=== PATIENT | female | born 1935 | race Caucasian/White ===

== ENCOUNTER → 2018-06-22 | Outpatient (CLI) | payer MEDICARE ==
--- NOTE | 2018-06-22 15:23 | XR ---
EXAMINATION TYPE: XR abdomen 2V DATE OF EXAM: 06/22/2018 COMPARISON: 02/01/2010 HISTORY: Pelvic pain TECHNIQUE: One view abdominal series FINDINGS: The osseous structures are intact. The bowel gas pattern is nonspecific. Curvature the spine with mu ltilevel degenerative disc disease. There are vascular calcifications. Bone island overlying the left femur and right iliac bone. Tiny calcifications in the pelvis are nonspecific. Arthropathy of the hi ps. IMPRESSION: 1. Nonspecific abdomen. There are calcifications the pelvis which are likely vascular. Aortic athero sclerotic changes are noted which could be correlated with ultrasound. Correlate with CT scan as curr ently warranted.
== END | disposition home or self-care (01) ==
LOC: RADXRYALE 15:06
PROVIDERS: ATTEND Physician Assistant Medical
DX: I70.0 Atherosclerosis of aorta (principal); R10.30 Lower abdominal pain, unspecified; R19.04 Left lower quadrant abdominal swelling, mass and lump
CPT/HCPCS: 74019

== ENCOUNTER 2018-06-30 15:58 | Inpatient (IN) | payer MEDICARE ==
[2018-06-30 14:12] LABS: Blood Urea Nitrogen 13 mg/dL (7-17)
--- NOTE | 2018-06-30 16:02 | CT ---
EXAMINATION TYPE: CT abdomen pelvis w con DATE OF EXAM: 06/30/2018 HISTORY: Lower abdominal pain, mass. CT DLP: 1189.1mGycm Automated Exposure Control for Dose Reduction was Utilized. CONTRAST: CT scan of the abdomen and pelvis is performed with IV Contrast, patient injected with 100 mL of Isov ue M300. COMPARISON: None. FINDINGS: LUNG BASES: There is a 2 mm pulmonary nodule within the anterior right lower lobe. LIVER/GB: No significant abnormality is appreciated. Gallbladder demonstrates no internal radiopaque calculi. PANCREAS: Mild pancreatic atrophy is present without ductal dilatation. SPLEEN: Nonspecific splenic lesion is seen posteriorly measuring 7 mm. ADRENALS: There is slight nodularity of the lateral limb of the left adrenal gland measuring 7 mm. Th is remains indeterminant as it does not meet diagnostic criteria for an adrenal adenoma on this exami nation. KIDNEYS: Kidneys enhance and excrete symmetrically without hydronephrosis. However there is a too sma ll to accurately characterize left midpole renal lesion on series 6 image 35. BOWEL: There is diffuse thickening of the sigmoid colon, directly adjacent to the thickened sigmoid c olon there is a multiloculated fluid collection with peripheral enhancement and surrounding spiculati on with mild inflammatory change. The largest contiguous dimension measures approximately 5.2 x 1.6 c m with the more caudal and cranial aspects loculated. A smaller adjacent fluid collection measures 1. 2 cm in the more inferior fluid collection measures 1.9 cm. There is no air seen within the fluid col lection or free air seen. There is no large or small bowel dilatation or evidence of obstruction. Contrast does not extend to t he sigmoid colon. UTERUS/ADNEXA: Uterus appears surgically absent. LYMPH NODES: No greater than 1cm abdominal or pelvic lymph nodes are appreciated. OSSEOUS STRUCTURES: Sclerotic lesion within the right iliac bone measuring 4 mm. This could represent a benign bone island. Mild multilevel degenerative changes of the spine are present with multilevel vacuum disc disease. OTHER: Diastases recti is seen. There is moderate calcific atheromatous changes of the abdominal aort a and its branches. IMPRESSION: 1. Multiloculated peripherally enhancing pericolonic fluid collection with stranding inflammatory phl egmonous change adjacent to the thickened sigmoid colon with numerous diverticula. Therefore findings are most compatible with acute on chronic diverticulitis and associated pericolonic abscess formatio n. Findings were communicated with the ordering physician's office however the ordering physician was out of the office and therefore findings were dedicated to a physician programs assistant with instructions t o send the patient to the ER. The patient was therefore instructed to go directly to the ER. 2. Indeterminate left adrenal gland lesion for which further characterization with three-phase enhanc ed abdominal CT could be performed on a nonemergent basis.
[2018-06-30] MEDS ORDERED: metroNIDAZOLE-NS PMX 500 MG in SALINE 1 100ML.BAG IVPB STA (16:54)
[2018-06-30] MEDS ORDERED: LEVOFLOXACIN 750MG-D5W PMX 750 MG in DEXTROSE/WATER 1 150ML.BAG IVPB STA (16:54)
--- NOTE | 2018-06-30 16:57 | ED ---
Abdominal Pain HPI - General Chief Complaint: Abdominal Pain Time Seen by Provider: 06/30/18 16:43 Source: patient, RN notes reviewed Mode of arrival: ambulatory Limitations: no limitations - History of Present Illness Initial Comments: 82-year-old female presents emergency Department chief complaint abdominal pain. Patient states been having ongoing abdominal pain for last 1 month and states that she went for a CT today and she was sent to the ER. Patient is found to have diverticulitis with abscess. Patient denies any fever or chills or night sweats. She states the pain seems to wax and wane but has never unbearable. She has no dysuria, urinary frequency. She has had a prior appendectomy, section but no recent surgeries. She states that she has no known history of diverticulitis. Patient denies any hematemesis, coffee- ground emesis, melena or hematochezia denies any mucus within her stool. - Related Data Allergies Allergy/AdvReac Type Severity Reaction Status Date / Time blue cheese Allergy Rash/Hives Uncoded 06/30/18 16:28 Review of Systems ROS Statement: Those systems with pertinent positive or pertinent negative responses have been documented in the HPI. ROS Other: All systems not noted in ROS Statement are negative. Past Medical History Past Medical History: Hypertension Additional Past Medical History / Comment(s): back pain History of Any Multi-Drug Resistant Organisms: None Reported Past Surgical History: Joint Replacement Additional Past Surgical History / Comment(s): knee repla Past Psychological History: No Psychological Hx Reported Smoking Status: Never smoker Past Alcohol Use History: None Reported Past Drug Use History: None Reported General Exam Limitations: no limitations General appearance: alert, in no apparent distress Head exam: Present: atraumatic, normocephalic, normal inspection Respiratory exam: Present: normal lung sounds bilaterally. Absent: respiratory distress, wheezes, rales, rhonchi, stridor Cardiovascular Exam: Present: regular rate, normal rhythm, normal heart sounds. Absent: systolic murmur, diastolic murmur, rubs, gallop, clicks GI/Abdominal exam: Present: soft, tenderness (Mild tenderness to left lower quadrant), normal bowel sounds. Absent: distended, guarding, rebound, rigid Back exam: Absent: CVA tenderness (R), CVA tenderness (L) Skin exam: Present: warm, dry, intact, normal color. Absent: rash Course Vital Signs 06/30/18 16:25 Temperature 98.8 F Pulse Rate 90 Respiratory 18 Rate Blood Pressure 185/102 O2 Sat by Pulse 96 Oximetry Medical Decision Making - Medical Decision Making 82-year-old female presented for abdominal pain palpation CT shows diverticulitis with pericolonic abscess. There is no noted free air. Patient will be started on antibiotics admitted to Dr. Mcdowell medicine with consult to Dr. mackey for surgery. - Lab Data Result diagrams: 06/30/18 17:22 06/30/18 17:22 Lab Results 06/30/18 06/30/18 06/30/18 Range/Units 13:55 17:22 17:22 WBC 8.0 (3.8-10.6) k/uL RBC 4.43 (3.80-5.40) m/uL Hgb 13.3 (11.4-16.0) gm/dL Hct 40.3 (34.0-46.0) % MCV 90.9 (80.0-100.0) fL MCH 29.9 (25.0-35.0) pg MCHC 32.9 (31.0-37.0) g/dL RDW 12.4 (11.5-15.5) % Plt Count 316 (150-450) k/uL Neutrophils % 75 % Lymphocytes % 16 % Monocytes % 6 % Eosinophils % 2 % Basophils % 0 % Neutrophils # 6.0 (1.3-7.7) k/uL Lymphocytes # 1.3 (1.0-4.8) k/uL Monocytes # 0.5 (0-1.0) k/uL Eosinophils # 0.1 (0-0.7) k/uL Basophils # 0.0 (0-0.2) k/uL PT (9.0-12.0) sec INR (<1.2) APTT (22.0-30.0) sec Sodium 137 (137-145) mmol/L Potassium 3.8 (3.5-5.1) mmol/L Chloride 104 (98-107) mmol/L Carbon Dioxide 26 (22-30) mmol/L Anion Gap 7 mmol/L BUN 13 10 (7-17) mg/dL Creatinine 0.68 0.60 (0.52-1.04) mg/dL Est GFR (CKD-EPI)AfAm >90 >90 (>60 ml/min/1.73 sqM) Est GFR (CKD-EPI)NonAf 83 87 (>60 ml/min/1.73 sqM) Glucose 106 H (74-99) mg/dL Plasma Lactic Acid Noel (0.7-2.0) mmol/L Calcium 8.8 (8.4-10.2) mg/dL Total Bilirubin 0.3 (0.2-1.3) mg/dL AST 20 (14-36) U/L ALT 30 (9-52) U/L Alkaline Phosphatase 101 (38-126) U/L Total Protein 5.9 L (6.3-8.2) g/dL Albumin 3.3 L (3.5-5.0) g/dL Urine Color Urine Appearance (Clear) Urine pH (5.0-8.0) Ur Specific Sophia (1.001-1.035) Urine Protein (Negative) Urine Glucose (UA) (Negative) Urine Ketones (Negative) Urine Blood (Negative) Urine Nitrite (Negative) Urine Bilirubin (Negative) Urine Urobilinogen (<2.0) mg/dL Ur Leukocyte Esterase (Negative) 06/30/18 06/30/18 06/30/18 Range/Units 17:22 17:22 17:45 WBC (3.8-10.6) k/uL RBC (3.80-5.40) m/uL Hgb (11.4-16.0) gm/dL Hct (34.0-46.0) % MCV (80.0-100.0) fL MCH (25.0-35.0) pg MCHC (31.0-37.0) g/dL RDW (11.5-15.5) % Plt Count (150-450) k/uL Neutrophils % % Lymphocytes % % Monocytes % % Eosinophils % % Basophils % % Neutrophils # (1.3-7.7) k/uL Lymphocytes # (1.0-4.8) k/uL Monocytes # (0-1.0) k/uL Eosinophils # (0-0.7) k/uL Basophils # (0-0.2) k/uL PT 9.9 (9.0-12.0) sec INR 1.0 (<1.2) APTT 24.0 (22.0-30.0) sec Sodium (137-145) mmol/L Potassium (3.5-5.1) mmol/L Chloride (98-107) mmol/L Carbon Dioxide (22-30) mmol/L Anion Gap mmol/L BUN (7-17) mg/dL Creatinine (0.52-1.04) mg/dL Est GFR (CKD-EPI)AfAm (>60 ml/min/1.73 sqM) Est GFR (CKD-EPI)NonAf (>60 ml/min/1.73 sqM) Glucose (74-99) mg/dL Plasma Lactic Acid Noel 0.8 (0.7-2.0) mmol/L Calcium (8.4-10.2) mg/dL Total Bilirubin (0.2-1.3) mg/dL AST (14-36) U/L ALT (9-52) U/L Alkaline Phosphatase (38-126) U/L Total Protein (6.3-8.2) g/dL Albumin (3.5-5.0) g/dL Urine Color Colorless Urine Appearance Clear (Clear) Urine pH 7.0 (5.0-8.0) Ur Specific Sophia 1.019 (1.001-1.035) Urine Protein Negative (Negative) Urine Glucose (UA) Negative (Negative) Urine Ketones Negative (Negative) Urine Blood Negative (Negative) Urine Nitrite Negative (Negative) Urine Bilirubin Negative (Negative) Urine Urobilinogen <2.0 (<2.0) mg/dL Ur Leukocyte Esterase Negative (Negative) Disposition Clinical Impression: Diverticulitis of intestine with abscess Disposition: ADMITTED IP TO THIS HOSP Condition: Stable Referrals: Tom John DO [Primary Care Provider] - 1-2 days
[2018-06-30 17:39] LABS: Basophils % (A) 0 %; Eosinophils # (A) 0.1 k/uL (0-0.7); Eosinophils % (A) 2 %; HCT 40.3 % (34.0-46.0); HGB 13.3 gm/dL (11.4-16.0); Lymphocytes # (A) 1.3 k/uL (1.0-4.8); Lymphocytes % (A) 16 %; MCH 29.9 pg (25.0-35.0); MCHC 32.9 g/dL (31.0-37.0); MCV 90.9 fL (80.0-100.0); Mean Platelet Volume 6.3; Monocytes # (A) 0.5 k/uL (0-1.0); Monocytes % (A) 6 %; Neutrophils % (A) 75 %; Platelet Count 316 k/uL (150-450); RBC 4.43 m/uL (3.80-5.40); RDW 12.4 % (11.5-15.5)
[2018-06-30 17:47] LABS: Prothrombin Time 9.9 sec (9.0-12.0)
[2018-06-30 17:55] LABS: Appearance,Urine Clear (Clear); Bilirubin,Urine Negative (Negative); Blood,Urine Negative (Negative); Color,Urine Colorless; Glucose,Urine (UA) Negative (Negative); Ketones,Urine Negative (Negative); Leukocyte Esterase,Urine Negative (Negative); Nitrite,Urine Negative (Negative); Protein,Urine Negative (Negative); Specific Gravity,Urine 1.019 (1.001-1.035); Urobilinogen,Urine <2.0 mg/dL (<2.0)
[2018-06-30 17:57] LABS: ALT 30 U/L (9-52); AST 20 U/L (14-36); Albumin 3.3 g/dL (3.5-5.0); Alkaline Phosphatase 101 U/L (38-126); Anion Gap 7 mmol/L; Blood Urea Nitrogen 10 mg/dL (7-17); Calcium 8.8 mg/dL (8.4-10.2); Carbon Dioxide 26 mmol/L (22-30); Chloride 104 mmol/L (98-107); Glucose 106 mg/dL (74-99); Potassium 3.8 mmol/L (3.5-5.1); Sodium 137 mmol/L (137-145); Total Bilirubin 0.3 mg/dL (0.2-1.3); Total Protein 5.9 g/dL (6.3-8.2)
[2018-06-30] MEDS ORDERED: MORPHINE SULFATE 4 MG/ML SYRINGE IV PRN (18:01)
[2018-06-30] MEDS ORDERED: ONDANSETRON 4 MG/2 ML VIAL IVP PRN (18:01)
[2018-06-30] MEDS ORDERED: NALOXONE 0.4 MG/ML 1 ML VIAL IV PRN (18:01)
[2018-06-30 19:38] VITALS: BMI 35.2
[2018-06-30] MEDS: SODIUM CHLORIDE 0.9% 1,000 ML IV SCH (23:09)
[2018-06-30] MEDS: metroNIDAZOLE-NS PMX 500 MG in SALINE 1 100ML.BAG IVPB SCH (23:09)
[2018-07-01] MEDS: metroNIDAZOLE-NS PMX 500 MG in SALINE 1 100ML.BAG IVPB SCH ×2 (09:38→15:33)
[2018-07-01] MEDS: SODIUM CHLORIDE 0.9% 1,000 ML IV SCH (09:40)
--- NOTE | 2018-07-01 10:13 | P.GSCN ---
History of Present Illness Consult date: 07/01/18 Reason for Consult: Diverticulitis History of present illness: Patient is an 82-year-old pleasant lady presents to the hospital complaining of 3-4 weeks of abdominal pain mostly left lower quadrant and suprapubic. Gen. in recent CAT scan was found to have diverticulitis with small flakita-colonic abscess. Doing better today. Patient denies fevers. No nausea or vomiting. Fairly normal stools. Denies rectal bleeding or melena. White blood cell count is normal. She is afebrile currently. Pain is improved today. Last colonoscopy over 10 years ago. CAT scan reviewed. Past Medical History Past Medical History: Hypertension Additional Past Medical History / Comment(s): back pain History of Any Multi-Drug Resistant Organisms: None Reported Past Surgical History: Joint Replacement Additional Past Surgical History / Comment(s): knee repla Past Psychological History: No Psychological Hx Reported Smoking Status: Never smoker Past Alcohol Use History: None Reported Past Drug Use History: None Reported Medications and Allergies Home Medications Medication Instructions Recorded Confirmed Type Aspirin 325 - 650 mg PO DAILY PRN 06/30/18 06/30/18 History C,E,Zinc,Copper 11/Zggxz8x/Lut 1 cap PO BID 06/30/18 06/30/18 History [Ocuvite Adult 50 Plus Softgel] HYDROcodone/APAP 10-325MG [[place] 1 tab PO BID 06/30/18 06/30/18 History 10-325] Losartan [Cozaar] 25 mg PO DAILY 06/30/18 06/30/18 History Mirabegron [Myrbetriq] 50 mg PO DAILY 06/30/18 06/30/18 History Multivitamins, Thera [Multivitamin 1 tab PO DAILY 06/30/18 06/30/18 History (formulary)] Allergies Allergy/AdvReac Type Severity Reaction Status Date / Time blue cheese Allergy Rash/Hives Uncoded 06/30/18 16:28 Surgical - Exam Vital Signs Temp Pulse Resp BP Pulse Ox 98.8 F 90 18 185/102 96 06/30/18 16:25 06/30/18 16:25 06/30/18 16:25 06/30/18 16:25 06/30/18 16:25 Physical exam: General: Well-developed, well-nourished HEENT: Normocephalic, sclerae nonicteric Abdomen: Mild suprapubic tenderness, nondistended Extremities: No edema Neuro: Alert and oriented Results - Labs 06/30/18 17:22 06/30/18 17:22 Abnormal Lab Results - Last 24 Hours (Table) 06/30/18 Range/Units 17:22 Glucose 106 H (74-99) mg/dL Total Protein 5.9 L (6.3-8.2) g/dL Albumin 3.3 L (3.5-5.0) g/dL Diabetes panel 06/30/18 06/30/18 Range/Units 13:55 17:22 Sodium 137 (137-145) mmol/L Potassium 3.8 (3.5-5.1) mmol/L Chloride 104 (98-107) mmol/L Carbon Dioxide 26 (22-30) mmol/L BUN 13 10 (7-17) mg/dL Creatinine 0.68 0.60 (0.52-1.04) mg/dL Glucose 106 H (74-99) mg/dL Calcium 8.8 (8.4-10.2) mg/dL AST 20 (14-36) U/L ALT 30 (9-52) U/L Alkaline Phosphatase 101 (38-126) U/L Total Protein 5.9 L (6.3-8.2) g/dL Albumin 3.3 L (3.5-5.0) g/dL Calcium panel 06/30/18 Range/Units 17:22 Calcium 8.8 (8.4-10.2) mg/dL Albumin 3.3 L (3.5-5.0) g/dL Pituitary panel 06/30/18 06/30/18 Range/Units 13:55 17:22 Sodium 137 (137-145) mmol/L Potassium 3.8 (3.5-5.1) mmol/L Chloride 104 (98-107) mmol/L Carbon Dioxide 26 (22-30) mmol/L BUN 13 10 (7-17) mg/dL Creatinine 0.68 0.60 (0.52-1.04) mg/dL Glucose 106 H (74-99) mg/dL Calcium 8.8 (8.4-10.2) mg/dL Adrenal panel 06/30/18 06/30/18 Range/Units 13:55 17:22 Sodium 137 (137-145) mmol/L Potassium 3.8 (3.5-5.1) mmol/L Chloride 104 (98-107) mmol/L Carbon Dioxide 26 (22-30) mmol/L BUN 13 10 (7-17) mg/dL Creatinine 0.68 0.60 (0.52-1.04) mg/dL Glucose 106 H (74-99) mg/dL Calcium 8.8 (8.4-10.2) mg/dL Total Bilirubin 0.3 (0.2-1.3) mg/dL AST 20 (14-36) U/L ALT 30 (9-52) U/L Alkaline Phosphatase 101 (38-126) U/L Total Protein 5.9 L (6.3-8.2) g/dL Albumin 3.3 L (3.5-5.0) g/dL Assessment and Plan (1) Diverticulitis of intestine with abscess Narrative/Plan: Patient seems really responding well to IV antibiotics currently. Begin clear liquids. Anticipate discharge home on oral antibiotics in the next few days with plans for outpatient ct scan. Current Visit: Yes Status: Acute Code(s): K57.80 - DVTRCLI OF INTEST, PART UNSP, W PERF AND ABSCESS W/O BLEED SNOMED Code(s): 523828524
[2018-07-01] MEDS ORDERED: KETOROLAC 30 MG/ML 1 ML VIAL IVP PRN (11:05)
[2018-07-01] MEDS ORDERED: ACETAMINOPHEN TAB 325 MG TAB PO PRN (11:05)
--- NOTE | 2018-07-01 13:16 | P.HPIM ---
History of Present Illness 82-year-old pleasant female came in with compensative lower quadrant as well as orthopedic abdominal pain going on for about 4 weeks moderate in severity and sharp in nature. Patient had a CAT scan of the abdomen which showed diverticulitis with saw some small pericolonic abscess patient denied nausea vomiting patient denied any hematochezia or melena. Patient is afebrile with no leukocytosis. Patient was started on levofloxacin and metronidazole which are being continued patient was started on clear liquid diet surgery evaluated the patient today is recommending monitoring on IV antibiotics no surgical intervention is being planned at this time patient abdominal wall tenderness significantly improved doesn't have any tenderness at this point of time and patient is tolerating her antibiotics very well at this time. Review of Systems REVIEW OF SYSTEMS: CONSTITUTIONAL: No fever, no malaise, no fatigue. HEENT: No recent visual problems or hearing problems. Denied any sore throat. CARDIOVASCULAR: No chest pain, orthopnea, PND, no palpitations, no syncope. PULMONARY: No shortness of breath, no cough, no hemoptysis. GASTROINTESTINAL: No diarrhea, no nausea, no vomiting. NEUROLOGICAL: No headaches, no weakness, no numbness. HEMATOLOGICAL: Denies any bleeding or petechiae. GENITOURINARY: Denies any burning micturition, frequency, or urgency. MUSCULOSKELETAL/RHEUMATOLOGICAL: Denies any joint pain, swelling, or any muscle pain. ENDOCRINE: Denies any polyuria or polydipsia. The rest of the 14-point review of systems is negative. Past Medical History Past Medical History: Hypertension Additional Past Medical History / Comment(s): back pain History of Any Multi-Drug Resistant Organisms: None Reported Past Surgical History: Joint Replacement Additional Past Surgical History / Comment(s): knee repla Past Psychological History: No Psychological Hx Reported Smoking Status: Never smoker Past Alcohol Use History: None Reported Past Drug Use History: None Reported Medications and Allergies Home Medications Medication Instructions Recorded Confirmed Type Aspirin 325 - 650 mg PO DAILY PRN 06/30/18 06/30/18 History C,E,Zinc,Copper 11/Vdzxi7z/Lut 1 cap PO BID 06/30/18 06/30/18 History [Ocuvite Adult 50 Plus Softgel] HYDROcodone/APAP 10-325MG [[place] 1 tab PO BID 06/30/18 06/30/18 History 10-325] Losartan [Cozaar] 25 mg PO DAILY 06/30/18 06/30/18 History Mirabegron [Myrbetriq] 50 mg PO DAILY 06/30/18 06/30/18 History Multivitamins, Thera [Multivitamin 1 tab PO DAILY 06/30/18 06/30/18 History (formulary)] Allergies Allergy/AdvReac Type Severity Reaction Status Date / Time blue cheese Allergy Rash/Hives Uncoded 06/30/18 16:28 Physical Exam Vitals: Vital Signs Temp Pulse Pulse Resp BP BP Pulse Ox 07/01/18 06:14 97.4 F L 81 17 118/67 91 L 06/30/18 22:58 98.0 F 91 18 131/75 93 L 06/30/18 19:25 97.1 F L 89 18 143/84 96 06/30/18 16:25 98.8 F 90 18 185/102 96 Intake and Output 06/30/18 07/01/18 07/01/18 22:59 06:59 14:59 Other: Voiding Method Toilet # Voids 1 1 Weight 79 kg PHYSICAL EXAMINATION: GENERAL: The patient is alert and oriented x3, not in any acute distress. Well developed, well nourished. HEENT: Pupils are round and equally reacting to light. EOMI. No scleral icterus. No conjunctival pallor. Normocephalic, atraumatic. No pharyngeal erythema. No thyromegaly. CARDIOVASCULAR: S1 and S2 present. No murmurs, rubs, or gallops. PULMONARY: Chest is clear to auscultation, no wheezing or crackles. ABDOMEN: Soft, nontender, nondistended, normoactive bowel sounds. No palpable organomegaly. MUSCULOSKELETAL: No joint swelling or deformity. EXTREMITIES: No cyanosis, clubbing, or pedal edema. NEUROLOGICAL: Gross neurological examination did not reveal any focal deficits. SKIN: No rashes. Results CBC & Chem 7: 06/30/18 17:22 06/30/18 17:22 Labs: Abnormal Lab Results - Last 24 Hours (Table) 06/30/18 Range/Units 17:22 Glucose 106 H (74-99) mg/dL Total Protein 5.9 L (6.3-8.2) g/dL Albumin 3.3 L (3.5-5.0) g/dL Thrombosis Risk Factor Assmnt - Choose All That Apply Any of the Below Risk Factors Present?: No Each Risk Factor Represents 3 Points: Age 75 years or older Thrombosis Risk Factor Assessment Total Risk Factor Score: 3 Thrombosis Risk Factor Assessment Level: Moderate Risk Assessment and Plan Plan: -Acute diverticulitis with some small microperforation: Can you antibiotics can you with IV fluids cut down the IV fluids once patient was started on oral diet. -Hypertension: Resume home medications -Chronic low back pain.
[2018-07-01] MEDS: FAMOTIDINE 20 MG TAB PO SCH ×2 (13:54→19:55)
[2018-07-01] MEDS: LOSARTAN 25 MG TAB PO SCH (15:33)
[2018-07-01] MEDS ORDERED: LEVOFLOXACIN 750MG-D5W PMX 750 MG in DEXTROSE/WATER 1 150ML.BAG IVPB SCH (18:00)
[2018-07-02] MEDS: metroNIDAZOLE-NS PMX 500 MG in SALINE 1 100ML.BAG IVPB SCH ×2 (00:18→07:44)
[2018-07-02] MEDS: LOSARTAN 25 MG TAB PO SCH (07:44)
[2018-07-02] MEDS: FAMOTIDINE 20 MG TAB PO SCH (07:44)
[2018-07-02 08:14] VITALS: BP 136/79; PULSE 82; RESP 16; TEMP 98.4
[2018-07-02 08:18] LABS: Basophils % (A) 0 %; Eosinophils # (A) 0.2 k/uL (0-0.7); Eosinophils % (A) 3 %; HCT 45.1 % (34.0-46.0); HGB 14.2 gm/dL (11.4-16.0); Lymphocytes # (A) 1.8 k/uL (1.0-4.8); Lymphocytes % (A) 19 %; MCH 29.3 pg (25.0-35.0); MCHC 31.4 g/dL (31.0-37.0); MCV 93.2 fL (80.0-100.0); Mean Platelet Volume 6.3; Monocytes # (A) 0.6 k/uL (0-1.0); Monocytes % (A) 7 %; Neutrophils # (A) 6.8 k/uL (1.3-7.7); Neutrophils % (A) 70 %; Platelet Count 397 k/uL (150-450); RBC 4.84 m/uL (3.80-5.40); RDW 12.2 % (11.5-15.5); WBC 9.7 k/uL (3.8-10.6)
[2018-07-02] MEDS ORDERED: MYRBETRIQ 50MG PO SCH (09:00)
--- NOTE | 2018-07-02 09:56 | P.PN ---
Subjective Progress Note Date: 07/02/18 Principal diagnosis: Diverticulitis Patient doing well today. Only mild superpubic tenderness. She is afebrile. White blood cell count normal. Objective - Vital Signs Vital signs: Vital Signs Temp 98.4 F 07/02/18 07:01 Pulse 82 07/02/18 07:01 Resp 16 07/02/18 07:01 BP 136/79 07/02/18 07:01 Pulse Ox 92 L 07/02/18 07:01 Intake & Output 07/01/18 07/02/18 07/02/18 18:59 06:59 18:59 Intake Total 1200 Balance 1200 Intake: Oral 1200 Other: Voiding Method Toilet Toilet # Voids 1 3 # Bowel Movements 2 - Exam Abdomen: Soft, nondistended, mild suprapubic tenderness - Labs CBC & Chem 7: 07/02/18 07:31 06/30/18 17:22 Labs: Microbiology - Last 24 Hours (Table) 06/30/18 17:22 Blood Culture - Preliminary Blood No Growth after 24 hours Assessment and Plan (1) Diverticulitis of intestine with abscess Narrative/Plan: Continue IV antibiotics. Gradually advance diet. Would recommend follow-up CAT scan in 1 week. Current Visit: Yes Status: Acute Code(s): K57.80 - DVTRCLI OF INTEST, PART UNSP, W PERF AND ABSCESS W/O BLEED SNOMED Code(s): 883848098
--- NOTE | 2018-07-02 12:26 | P.DS ---
Providers Date of admission: 06/30/18 18:26 Attending physician: Rosaline Mcdowell Consults: 06/30/18 18:01 Consult Physician Stat Consulting Provider: Emiliano Lr Reason/Comments: Diverticulitis with abscess Do you want consulting provider notified?: Yes [facility] Course: 82-year-old pleasant female was admitted secondary to sigmoid diverticulitis with the small microperforation, was evaluated by surgery patient is able to tolerate full liquid diet will be advanced to soft diet patient will stay on soft diet until she sees Dr. June as an outpatient and will need a repeat CAT scan of the abdomen as an outpatient patient will follow with PCP in 2-3 days and surgery in about a week patient will be discharged on 10 day course of ciprofloxacin and metronidazole. PHYSICAL EXAMINATION: GENERAL: The patient is alert and oriented x3, not in any acute distress. Well developed, well nourished. HEENT: Pupils are round and equally reacting to light. EOMI. No scleral icterus. No conjunctival pallor. Normocephalic, atraumatic. No pharyngeal erythema. No thyromegaly. CARDIOVASCULAR: S1 and S2 present. No murmurs, rubs, or gallops. PULMONARY: Chest is clear to auscultation, no wheezing or crackles. ABDOMEN: Soft, nontender, nondistended, normoactive bowel sounds. No palpable organomegaly. MUSCULOSKELETAL: No joint swelling or deformity. EXTREMITIES: No cyanosis, clubbing, or pedal edema. NEUROLOGICAL: Gross neurological examination did not reveal any focal deficits. SKIN: No rashes. Her other chronic medical problems hospitalization course please refer to my HPI from yesterday Patient Condition at Discharge: Stable Plan - Discharge Summary New Discharge Prescriptions: New Ciprofloxacin HCl [Cipro] 500 mg PO Q12HR #20 tablet metroNIDAZOLE [Flagyl] 500 mg PO Q8HR #30 tab Continue Multivitamins, Thera [Multivitamin (formulary)] 1 tab PO DAILY C,E,Zinc,Copper 11/Noqnt7q/Lut [Ocuvite Adult 50 Plus Softgel] 1 cap PO BID Aspirin 325 - 650 mg PO DAILY PRN PRN Reason: Pain Mirabegron [Myrbetriq] 50 mg PO DAILY Losartan [Cozaar] 25 mg PO DAILY HYDROcodone/APAP 10-325MG [[place] 10-325] 1 tab PO BID Discharge Medication List Aspirin 325 - 650 mg PO DAILY PRN 06/30/18 [History] C,E,Zinc,Copper 11/Ympys0g/Lut [Ocuvite Adult 50 Plus Softgel] 1 cap PO BID 02/12 [History] HYDROcodone/APAP 10-325MG [[place] 10-325] 1 tab PO BID 06/30/18 [History] Losartan [Cozaar] 25 mg PO DAILY 06/30/18 [History] Mirabegron [Myrbetriq] 50 mg PO DAILY 06/30/18 [History] Multivitamins, Thera [Multivitamin (formulary)] 1 tab PO DAILY 06/30/18 [History ] Ciprofloxacin HCl [Cipro] 500 mg PO Q12HR #20 tablet 07/02/18 [Rx] metroNIDAZOLE [Flagyl] 500 mg PO Q8HR #30 tab 07/02/18 [Rx] Follow up Appointment(s)/Referral(s): Emiliano Lr MD [Medical Doctor] - 1 Week (office closed, call to make appt) Tom John DO [Primary Care Provider] - 3 Days (office closed, call to make own appt.) Patient Instructions/Handouts: Diverticulitis (DC) Discharge Disposition: HOME SELF-CARE
== END 2018-07-02 12:51 | disposition home or self-care (01) | DRG 392 ==
LOC: EC 15:58 → 4MS4W 18:26
PROVIDERS: ADMIT Internal Medicine; ATTEND Internal Medicine
DX: K57.20 Diverticulitis of large intestine with perforation and abscess without bleeding (principal); G89.29 Other chronic pain; I10 Essential (primary) hypertension; Z79.899 Other long term (current) drug therapy; M54.5 Low back pain; Z96.659 Presence of unspecified artificial knee joint; Z79.82 Long term (current) use of aspirin
CPT/HCPCS: 36415; 74177; 80053; 81003; 82565; 83605; 84520; 85025; 85610; 85730; 87040; 87324; 96365; 96366; 99285

== ENCOUNTER → 2018-07-12 | Outpatient (CLI) | payer MEDICARE ==
--- NOTE | 2018-07-12 15:34 | CT ---
EXAMINATION TYPE: CT abdomen pelvis w con DATE OF EXAM: 07/12/2018 COMPARISON: 06/30/2018 INDICATION: Diverticulitis DLP: 1390 mGycm, Automated exposure control for dose reduction was used. CONTRAST: 100 ml mL of Isovue 300. Study performed with Oral Contrast TECHNIQUE: Axial images were obtained from above the diaphragm to the pubic rami in the axial plane a t 5 mm thick sections. Reconstructed images are reviewed on the computer in the coronal plane. FINDINGS: Limited CT sections are obtained the lung bases. The lung bases are clear. CT ABDOMEN: Liver: Normal Spleen: There is a 1.0 cm cyst on the medial and spleen. Pancreas: Normal Adrenal glands: The adrenal glands are normal. Gallbladder: Normal Kidneys: No masses are evident. No hydronephrosis is present. No cysts are present. Aorta: Vascular calcification is within the aorta. Inferior vena cava: Normal. CT PELVIS: Diverticuli are within the sigmoid colon. Adjacent to the sigmoid colon is a low-density collection w ith small amount of air measuring 2.7 x 5.4 cm. Findings are compatible with abscess. This is diminis hed in size from the comparison. Contrast extends to distal small bowel loops to the transverse colon . Fecal debris is in the transverse colon and descending colon. Appendix: Normal as visualized. Urinary bladder: Normal. Genitourinary structures: Uterus and ovaries are not identified. Osseous structures: No suspicious lytic or sclerotic lesions. Degenerative disc changes are within th e thoracic and lumbar spine within the [id number]. IMPRESSIONS: 1. Diminished size of the perisigmoid abscess.
== END | disposition home or self-care (01) ==
LOC: RADCTMAIN 12:10
PROVIDERS: ATTEND Surgery
DX: K63.0 Abscess of intestine (principal); K57.32 Diverticulitis of large intestine without perforation or abscess without bleeding
CPT/HCPCS: 82565; 84520; 74177; 36415; Q9967

== ENCOUNTER → 2018-07-19 | Outpatient (CLI) | payer MEDICARE ==
[2018-07-19 16:36] LABS: Blood Urea Nitrogen 13 mg/dL (7-17)
--- NOTE | 2018-07-20 10:14 | CT ---
EXAMINATION TYPE: CT abdomen pelvis w con DATE OF EXAM: 07/19/2018 COMPARISON: 07/12/2018 INDICATION: Diverticulitis. DLP: 1072.2 mGycm, Automated exposure control for dose reduction was used. CONTRAST: 100ml mL of Isovue M300. Study performed with Oral Contrast TECHNIQUE: Axial images were obtained from above the diaphragm to the pubic rami in the axial plane a t 5 mm thick sections. Reconstructed images are reviewed on the computer in the coronal plane. FINDINGS: Limited CT sections are obtained the lung bases. The lung bases are clear. Coronary artery calcific ation is noted. CT ABDOMEN: Liver: Normal Spleen: Normal Pancreas: There is some fatty infiltration of the pancreas. Adrenal glands: The adrenal glands are normal. Gallbladder: Normal Kidneys: No masses are evident. No hydronephrosis is present. No cysts are present. Delayed images were obtained through the kidneys, which remain unremarkable. Aorta: Vascular calcification is within the aorta. Inferior vena cava: Normal. CT PELVIS: Diverticular changes are within the proximal sigmoid colon. Patient's previously described abscess in the left hemipelvis is diminished in size. This current measurement is 1.9 x 4.4 cm. This is less th an the 2.7 x 5.4 cm previously. No air is identified. There continues to be central low density. No n ew abscess is evident. Loops of bowel otherwise appear unremarkable. Appendix: Not identified on the current examination. No suspicious tubular structures or inflammatory changes identified. Urinary bladder: Unremarkable Genitourinary structures: Uterus and ovaries are not identified. Osseous structures: No suspicious lytic or sclerotic lesions. Degenerative disc changes are in the talon mbar spine IMPRESSIONS: 1. Diminished size and improving left lower quadrant flakita-sigmoid abscess. 2. Diverticulosis without acute diverticulitis evident at this time.
== END | disposition home or self-care (01) ==
LOC: RADCTMAIN 15:51
PROVIDERS: ATTEND Surgery
DX: K63.0 Abscess of intestine (principal); K57.90 Diverticulosis of intestine, part unspecified, without perforation or abscess without bleeding
CPT/HCPCS: 82565; 84520; 74177; 36415; Q9967

== ENCOUNTER → 2024-03-06 | Outpatient (CLI) | payer MEDICARE ==
--- NOTE | 2024-03-06 15:48 | MR ---
EXAMINATION TYPE: MR brain wo con DATE OF EXAM: 03/06/2024 2:18 PM COMPARISON: NONE HISTORY: Memory loss, vascular dementia FINDINGS: The ventricles, basal cisterns and sulci overlying the cerebral convexities are mildly enlarged. There is evidence of moderate and somewhat confluent periventricular white matter ischemic demyelinat ion. Remote deep white matter insults are also noted. No acute edema is seen on diffusion weighted imaging. There is no evidence for midline shift or mass effect. Acute intracranial hemorrhage or extra-axial collection is not evident. The paranasal sinuses and mastoid air cells are well-aerated. IMPRESSION: Age-related atrophic and chronic small vessel ischemic change. No acute intracranial process at this time.
== END | disposition home or self-care (01) ==
LOC: RADMRIMAIN 13:19
PROVIDERS: ATTEND Psychiatry & Neurology Neurology
DX: I67.82 Cerebral ischemia (principal); I67.9 Cerebrovascular disease, unspecified; G31.9 Degenerative disease of nervous system, unspecified
CPT/HCPCS: 70551

== ENCOUNTER → 2024-12-14 | Outpatient (CLI) | payer MEDICARE ==
[2024-12-14 16:50] LABS: NT-Pro-B-Type Natriuretic Pept 3514 pg/mL (0-450)
[2024-12-14 16:54] LABS: HCT 43.5 % (37.2-46.3); HGB 13.6 g/dL (12.0-15.0); MCH 31.1 pg (27.0-32.0); MCHC 31.3 g/dL (32.0-37.0); MCV 99.5 FL (80.0-97.0); Mean Platelet Volume 10.7 FL (9.5-12.2); NRBC Per 100 WBC 0 X 10*3/uL (0.00-0.01); Platelet Count 224 X 10*3/uL (140-440); RBC 4.37 X 10*6/uL (4.10-5.20); RDW 13.1 % (11.5-14.5)
[2024-12-14 17:01] LABS: BUN/Creat Ratio 16.33 Ratio (12.00-20.00); Blood Urea Nitrogen 14.7 mg/dL (9.0-27.0); Calcium 8.9 mg/dL (8.7-10.3); Carbon Dioxide 26.6 mmol/L (21.6-31.8); Chloride 106 mmol/L (96-109); Glucose 100 mg/dL (70-110); Potassium 4.4 mmol/L (3.5-5.5); Sodium 144 mmol/L (135-145)
== END | disposition home or self-care (01) ==
LOC: LABWHC1 10:36
PROVIDERS: ATTEND Internal Medicine Cardiovascular Disease
DX: I48.11 Longstanding persistent atrial fibrillation (principal)
CPT/HCPCS: 36415; 80048; 83880; 84443; 85027

== ENCOUNTER → 2025-02-05 | Outpatient (CLI) | payer MEDICARE | END | disposition home or self-care (01) | LOC: LABWHC1 13:10 | PROVIDERS: ATTEND Internal Medicine Cardiovascular Disease | DX: I48.11 Longstanding persistent atrial fibrillation (principal) | CPT/HCPCS: 36415; 84443 ==